=== PATIENT | male | born 1985 | race Caucasian/White ===

== ENCOUNTER 2019-11-27 06:55 | Emergency (ER) | payer OTHER ==
[~2019-11-27] VITALS: Ht 165.1 cm; Wt 180.2 kg
[2019-11-27 07:01] VITALS: Ht 165.1 cm; Wt 180.2 kg
[2019-11-27 08:10] VITALS: BP 181/104
== END 2019-11-27 08:10 | disposition home or self-care (01) ==
LOC: ED 06:55
DX: S29.011A Strain of muscle and tendon of front wall of thorax, initial encounter (principal); X58.XXXA Exposure to other specified factors, initial encounter; Y93.89 Activity, other specified; Y92.89 Other specified places as the place of occurrence of the external cause; Y99.8 Other external cause status